=== PATIENT | female | born 1930 | race Caucasian/White ===

== ENCOUNTER 2018-03-24 15:37 | Inpatient (IN) ==
--- NOTE | 2018-03-24 16:45 | PROVIDER DOCUMENTATION ---
HPI-General Adult - General Stated Complaint: chronic pain Time Seen by Provider: 03/24/18 16:06 Source: patient Allergies/Adverse Reactions: Patient Allergies Allergy/AdvReac Type Severity Reaction Status Date / Time Penicillins Allergy Intermediate RASH Verified 03/24/18 17:06 Iodinated Contrast- Oral and AdvReac Unknown Unknown Verified 03/24/18 17:06 IV Dye Home Medications: Home Medication List Medication Instructions Recorded Confirmed Last Taken Type Aspirin 325 mg PO DAILY 04/08/14 03/24/18 03/24/18 History Ca Citrate/Mgox/Vit D3/B6/Min 1 tab PO DAILY 04/08/14 03/24/18 03/24/18 History [Citracal Plus Tablet] Multivitamins/Minerals [Centrum 1 tab PO DAILY 04/08/14 03/24/18 03/24/18 History Silver] Pramipexole Di-HCl [Pramipexole 0.25 mg PO QHS 04/08/14 03/24/18 03/23/18 History Dihydrochloride] Pravastatin Sodium 40 mg PO QHS 04/08/14 03/24/18 03/23/18 History Tramadol HCl/Acetaminophen 1 tab PO QHS PRN 04/08/14 03/24/18 03/24/18 History [Tramadol-Acetaminophn 37.5-325] Venlafaxine HCl [Venlafaxine HCl 25 mg PO DAILY 04/08/14 03/24/18 03/24/18 History ER] Metoprolol Succinate E.r. [Toprol 100 mg PO DAILY 04/19/14 03/24/18 03/24/18 History Xl] Furosemide [Lasix] 80 mg PO DAILY 04/20/14 03/24/18 03/24/18 History Potassium Chloride 10 meq PO DAILY 04/20/14 03/24/18 03/24/18 History Latanoprost [Xalatan] 2.5 ml OP QHS 02/08/15 03/24/18 03/23/18 History Allopurinol 100 mg PO DAILY 03/24/18 03/24/18 03/24/18 History Cyanocobalamin (Vitamin B-12) 5,000 mcg PO DAILY 03/24/18 03/24/18 03/24/18 History [Vitamin B-12] Cyclosporine 0.05% Oph Drops 1 each BOTH EYES BID 03/24/18 03/24/18 03/24/18 History [Restasis 0.05% Oph Drops] Docusate Sodium 100 mg PO BID 03/24/18 03/24/18 03/24/18 History Gabapentin 300 mg PO BID 03/24/18 03/24/18 03/24/18 History Insulin Detemir [Levemir] 45 unit SQ BID 03/24/18 03/24/18 03/24/18 History Loratadine 10 mg PO DAILY 03/24/18 03/24/18 03/24/18 History Polyethylene Glycol 3350 [Clearlax] 17 gm PO DAILY 03/24/18 03/24/18 03/24/18 History - History of Present Illness -Gen Adult Nature of Presenting Problems: Patient brought by granddaughter. she visited her today@10 AM and she was still sleeping "not her usual, she usually up and get breakfast and active". she still able to walk using the walker. Patient report headache for the last few days. BP was elevated in the NH. denies other complaints. Review of Systems - Adult - REVIEW OF SYSTEMS - ADULT Constitutional: reports: no symptoms reported Eyes: reports: no symptoms reported Ears, Nose, Mouth & Throat: reports: no symptoms reported Cardiovascular: reports: no symptoms reported Respiratory: reports: no symptoms reported Gastrointestinal: reports: no symptoms reported, other (suprapubic pressure) Musculoskeletal: reports: back pain Integumentary: reports: no symptoms reported Neurological: reports: no symptoms reported Psychiatric: reports: no symptoms reported Allergic/Immunologic: reports: no symptoms reported Past History - Adult - PAST MEDICAL HISTORY-ADULT Review of Records: reports: Old Records Reviewed, Nursing Assessment Review, Medications Reviewed, Social history reviewed & non-contributory. Cardiovascular: reports: CHF, HTN, hyperlipidemia Gastrointestinal: reports: GERD Musculoskeletal: reports: osteoporosis Psychiatric: reports: depression Endocrine/Immune: reports: Diabetes - PRIOR SURGERIES/PROCEDURES Surgical/Procedure History: reports: hysterectomy, joint replacement (Total knee replacement), back/neck (back Sx), other (hemorrhoidectomy). denies: breast (breast biopsy) - IMMUNIZATION STATUS Flu Vaccine: UTD Physical Exam-General - PHYSICAL EXAM-ADULT Initial Vital Signs Reviewed: Yes - CONSTITUTIONAL General Appearance: appears well, no apparent distress - EYES Eyes: PERRL/EOMI - HEAD, EARS, NOSE, MOUTH & THROAT HENMT: normocephalic/atraumatic, moist mucous membranes, normal ENT inspection - NECK Neck: non-tender, full range of motion, supple - RESPIRATORY Respiratory: lungs clear, normal breath sounds, no pleuratic chest pain - CARDIOVASCULAR Cardiovascular: normal peripheral pulses, regular rate, rhythm - GASTROINTESTINAL (ABDOMEN) Abdominal Exam: normal bowel sounds, non tender, soft - MUSCULOSKELETAL Back Exam: no CVA tenderness, no vertebral tenderness - NEUROLOGIC Neurologic: grossly normal, other (alert and Ox3) - PSYCHIATRIC Psych/Mental Status: normal mood/affect, normal thought content, normal thought process, oriented x 3 Progress - PLAN OF CARE/RESULTS Progress/Plan/Lab Results: Orders Category Date Time Status Cardiac Monitoring DIRECTED Care 03/24/18 16:22 Active CBC WITH ELECTRONIC DIFF [HEME] Stat Lab 03/24/18 16:20 Uncollected CMP [COMPREHENSIVE METABOLIC PANEL] [CHEM] Stat Lab 03/24/18 16:20 Uncollected TROPONIN T Stat Lab 03/24/18 16:20 Ordered URINALYSIS W/POSS RFLX CULT [URINALYSIS] Stat Lab 03/24/18 16:21 Uncollected EKG [EKG] Stat Ther 03/24/18 16:22 Ordered Result Diagrams: 03/24/18 16:50 03/24/18 16:50 - REASSESSMENT Reassessment #1 Time Reassessed: 19:12 Status: improving (Patient feels alot better. still has some headache.) Reassessment #2 Time Reassessed: 20:13 Status: worsening (Nurse report patient become confused and less responsive. seen by myself and Dr. Elias. will do CT head. Dr. Scott here in the ER, plan is to admit.) Reassessment #3 Time Reassessed: 21:02 Status: worsening (Discuss case with Dr. Scott. plan is to admit. patient is sleepy and respond just to painful stimuli. GCS 8. patient likely on Ativan effect. will Monitor) Reassessment #4 Time Reassessed: 21:56 Status: improving (Patient is more responsive, requesting pain medication.) - EKG 1 Time of EKG reading by physician:: 16:50 EKG Read and Signed by:: Tomás Yuen EKG Interpretation (*Must complete 3 of following elements*): Abnormal Rate: 64 Rhythm: NSR [place]: normal QRS: normal NC Interval: normal ST Wave: normal Prior EKG Comparison: changes noted Comments: PVC Noted - CONSULTS/PCP/HOSPITALIST Notification #1 *Consult/PCP/Hospitalist*: Dr. scott Consult Disposition: other (Discharge to [facility].) Departure - Departure Date of Disposition Decision: 03/24/18 Time of Disposition Decision: 19:06 DIAGNOSIS: Elevated blood pressure reading Hematuria Qualifiers: Hematuria type: unspecified type Qualified Code(s): R31.9 - Hematuria, unspecified Headache Qualifiers: Headache type: unspecified Headache chronicity pattern: acute headache Intractability: not intractable Qualified Code(s): R51 - Headache Back pain Qualifiers: Back pain location: low back pain Chronicity: chronic Back pain laterality: midline Sciatica presence: without sciatica Qualified Code(s): M54.5 - Low back pain Altered mental status Qualifiers: Altered mental status type: unspecified Qualified Code(s): R41.82 - Altered mental status, unspecified Disposition: ADMITTED INPATIENT 09 Certified Medical Emergency: Emergent Condition: Serious - Critical Care Note This patient required my direct & personal management of CC.: No Attestation - Physician/ MARY Attestation Patient care was provided by Advanced Practice Provider:: No The physician spent face to face time with patient:: Yes Advanced Practice Provider documentation review:: Supervising physician onsite and consulted in the evaluation and care of this patient. The physician did have a face to face encounter with the patient.
[2018-03-24 17:14] LABS: BASO# 0.04 X1000 (0.0-0.2); BASO% 0.4 % (0.0-0.8); EOS# 0.27 X1000 (0.0-0.7); EOS% 2.8 % (0.0-10.0); HEMATOCRIT 45.4 % (37.0-47.0); HEMOGLOBIN 14.3 g/dL (12.0-16.0); IMM GRAN# 0.02 X1000 (0.0-0.04); IMM GRAN% 0.2 % (0.0-0.5); LYMPH# 4.49 X1000 (1.2-3.4); MCH 30.8 PG (27-31); MCHC 31.5 g/dL (33-37); MCV 97.8 FL (81-99); MONO# 0.57 X1000 (0.11-0.59); MPV 10.5 FL (7.4-10.4); NEUT# 4.17 X1000 (1.4-6.5); NEUT% 43.6 % (42.2-75.2); PLT 192 X1000 (130-400); RBC 4.64 XMIL (4.2-5.4); RDW 13.5 % (11.5-14.5); WBC 9.56 X1000 (4.8-10.8)
[2018-03-24 17:20] LABS: URINE SOURCE CLEAN CATCH
[2018-03-24 17:30] LABS: BILIRUBIN URINE NEGATIVE (NEGATIVE); BLOOD URINE NEGATIVE (NEGATIVE); COLOR STRAW; GLUCOSE URINE NEGATIVE (NEGATIVE); KETONE URINE NEGATIVE (NEGATIVE); LEUKOCYTES URINE NEGATIVE (NEGATIVE); NITRITE URINE NEGATIVE (NEGATIVE); PROTEIN URINE NEGATIVE (NEGATIVE); TURBIDITY URINE CLEAR (CLEAR); UROBILINOGEN URINE NORMAL (NORMAL)
[2018-03-24 17:32] LABS: ALB/GLOB RATIO 1.2; ALBUMIN 4.2 g/dL (3.5-5.0); CALCIUM 9.4 mg/dL (8.8-10.2); CREATININE 0.9 mg/dL (0.5-0.9); POTASSIUM 4.2 mmol/L (3.5-5.1); TOTAL BILIRUBIN 0.18 mg/dL (0.20-1.00); TOTAL PROTEIN 7.6 g/dL (6.3-8.3)
[2018-03-24 17:32] LABS: UR EPITHELIAL CELLS <10 /HPF (<10); URINE BACTERIA NEGATIVE /HPF; URINE WBC <10 /HPF (<10)
[2018-03-24] MEDS ORDERED: LABETALOL IV ONE ×2 (17:59)
--- NOTE | 2018-03-24 18:34 | Diag Imaging Result Doc PS360 ---
EXAM: CT ABDOMEN/PELVIS W/O CONTRAST 03/24/2018 HISTORY: blood in urine, lower abdominal pain TECHNIQUE: This exam was performed using automated exposure control, adjustment of mA or kV according to patient size, and/or use of iterative reconstruction technique. COMMENT: There are linear opacities in both medial lower lobes as well as the lingula which may be due to atelectasis. None of these abnormalities were present on 12/06/2011. There is a cyst in the left hepatic lobe which has not changed since the previous study. The gallbladder is distended as it was on the previous exam. There is no evidence of nephrolithiasis or hydronephrosis. There is what appears to be a hyperdense cyst in the upper pole of the left kidney. Multiple other cysts are present. There is some stranding in the perinephric spaces bilaterally which was also the case at the time of the previous study. The urinary bladder is not distended. There is no evidence of ureterolithiasis. There is scattered colonic diverticulosis without evidence of acute diverticulitis. There is no evidence of bowel obstruction. There is no evidence of appendicitis. No free fluid is present. There are degenerative disc changes in the lumbar spine IMPRESSION: Bibasilar atelectasis. No evidence of urolithiasis or hydronephrosis. Otherwise no evidence of acute disease. Electronically signed by Trent Ballard 03/24/2018 6:31 PM
[2018-03-24] MEDS ORDERED: APRESOLINE IV ONE (18:38)
[2018-03-24] MEDS ORDERED: ATIVAN ONE (20:05)
--- NOTE | 2018-03-24 20:26 | Diag Imaging Result Doc PS360 ---
EXAM: CT HEAD W/O CONTRAST 03/24/2018 HISTORY: AMS TECHNIQUE: This exam was performed using automated exposure control, adjustment of mA or kV according to patient size, and/or use of iterative reconstruction technique. COMMENT: There is moderate cerebral atrophy. There is no evidence of bleed or mass effect. There are multiple small lacunae present in the basal ganglia region bilaterally. There is a small lacune in the posterior external capsule on the right. There are mucus retention cysts in both maxillary sinuses. The calvarium is intact. There is a subperiosteal lipoma over the left frontal bone which has not changed since 02/08/2015. Otherwise the appearance the brain has not changed appreciably. IMPRESSION: Chronic microvascular ischemic changes and atrophy. No evidence of acute intracranial disease. Electronically signed by Trent Ballard 03/24/2018 8:23 PM
[2018-03-24] MEDS ORDERED: ATIVAN IV ONE (20:29)
[2018-03-24] MEDS ORDERED: ULTRACET 37.5MG/325MG PO PRN (21:47)
[2018-03-24] MEDS ORDERED: TORADOL IV ONE (22:44)
--- NOTE | 2018-03-24 23:17 | HISTORY AND PHYSICAL ---
CHIEF COMPLAINT: 1. Lower abdominal pain. 2. Altered mental status, possible seizure, passed out x2. 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 Initial complaint was abdominal pain and further workup was negative. Patient was supposed to go back to the [facility]. In the meantime she is getting some type of condition of the head and then passing out. The patient apparently went to the bathroom, in the meantime the granddaughter was at bedside and she was unresponse and blinking eyes and no seizure activity. The patient is hemodynamically stable. Blood sugars are normal. CT head was negative. Basically admitted to the hospital with recurrent dizzy spells and near syncope. Etiology is not clear. As a result, a hospital admission was warranted. CT head was negative and the patient was not seen in my office for the last 3 years. PAST MEDICAL HISTORY: Type 2 diabetes, metabolic syndrome, T11-T12 compression fracture, acid reflux disease, glaucoma, hypertension, hyperlipidemia, osteoarthritis, sleep apnea, vitamin B12 deficiency, history of lacunar strokes. PAST SURGICAL HISTORY: Benign breast biopsy, hemorrhoidectomy, hysterectomy, back surgery. MEDICATIONS: Reported Citracal 1 tablet daily, Centrum Silver 1 tablet daily, aspirin 81 mg daily, Effexor 25 daily, Ultracet 1 tab at bedtime, pravastatin 40 daily, pramipexole 0.25 daily, metoprolol 100 daily, potassium 10 mEq daily, Lasix 80 daily, Xalatan 2.5 one drop both eyes at bedtime, B12 5000 mcg daily, Restasis daily, docusate 100 p.o. b.i.d., Levemir 45 subcu b.i.d., loratadine 10 daily, MiraLAX 17 g daily, allopurinol 100 daily, gabapentin 300 b.i.d. ALLERGIES: Penicillin, contrast iodine, IVP dye. 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 FAMILY HISTORY: Father of Alzheimer disease, mom of mini strokes. REVIEW OF SYSTEMS: Some headache and dizzy spells, passing out, bilateral earaches and no goiter, no lymphadenopathy.Cardiopulmonary: No chest pain, shortness of breath, PND, orthopnea. No lumps in the breast. GI: Lower abdominal pain and discomfort possible UTI, no swelling of feet. Chronic pain in knees and the legs, no claudication symptoms. Chronic back pain. No neurological symptoms or weakness or seizures. EXAM: Temperature is 98 degrees, pulse is 60, blood pressure is stable, 95% on room air.HEENT: Atraumatic, normocephalic. Minimal wax noted in the right ear, tympanic membranes normal on the left side. Pupils equal, react to light. Tongue is midline. Neck: Supple. No lymphadenopathy. No goiter. Chest: Bilateral air entry. Heart: Sounds are regular and no murmur. Breast: Deferred. Belly: Is soft, obese, nontender. Good bowel sounds. No peripheral edema, cyanosis. No obvious neurological deficits noted. INVESTIGATIONS: CBC is normal. SMA 7 is normal. Glucose 135. LFTs, cardiac enzymes were normal. Urinalysis clear. CT scan abdomen and pelvis and bilateral bibasilar atelectasis. No evidence of hydronephrosis, no evidence of acute disease and the cyst in the left hepatic lobe. Gallbladder distended, urinary bladder is not distended. No evidence of diverticulitis, no evidence of bowel obstruction. Chronic DJD changes in the lumbar spine. CT head is negative. ASSESSMENT AND PLAN: 1. 87-year-old white female basically admitted to the hospital with recurrent dizzy spells, rule out orthostatic hypotension. Etiology not clear. Will admit to the hospital. Neuro checks. Physical therapy consult. 2. Abdominal pain. Findings were reassuring. 3. Deep venous thrombosis prophylaxis with Lovenox. 4. Reconcile home medicines. 5. Type 2 diabetes. Insulin sliding scale with coverage and will follow up. cc: Hira Zelaya MD
--- NOTE | 2018-03-25 08:20 | EKG Report ---
Test Performed on : 03/24/2018 4:48:04 PM Test Reason : TiffanieMarlon LUIS FERNANDO Blood Pressure : / mmHG Vent. Rate : 064 BPM Atrial Rate : 064 BPM P-R Int : 196 ms QRS Dur : 088 ms QT Int : 436 ms P-R-T Axes : 092 -27 020 degrees QTc Int : 449 ms Sinus rhythm. with frequent premature ventricular complexes. Nonspecific T wave abnormality Abnormal ECG When compared with ECG of 19-APR-2014 19:54, premature ventricular complexes. are now present Vent. rate has decreased BY 37 BPM Nonspecific T wave abnormality now evident in Anterior leads Unconfirmed Result
[2018-03-25] MEDS ORDERED: TYLENOL PO PRN (08:54)
[2018-03-25] MEDS ORDERED: LOVENOX SUBQ SCH (09:00)
[2018-03-25] MEDS ORDERED: EFFEXOR XR PO SCH (09:00)
[2018-03-25 09:40] LABS: BASO# 0.05 X1000 (0.0-0.2); BASO% 0.5 % (0.0-0.8); EOS# 0.24 X1000 (0.0-0.7); EOS% 2.2 % (0.0-10.0); HEMATOCRIT 46.3 % (37.0-47.0); HEMOGLOBIN 14.5 g/dL (12.0-16.0); IMM GRAN# 0.02 X1000 (0.0-0.04); IMM GRAN% 0.2 % (0.0-0.5); LYMPH# 4.71 X1000 (1.2-3.4); LYMPH% 43.7 % (20.5-51.1); MCHC 31.3 g/dL (33-37); MCV 98.9 FL (81-99); MONO# 0.83 X1000 (0.11-0.59); MONO% 7.7 % (1.7-9.3); MPV 11.3 FL (7.4-10.4); NEUT# 4.92 X1000 (1.4-6.5); NEUT% 45.7 % (42.2-75.2); PLT 220 X1000 (130-400); RBC 4.68 XMIL (4.2-5.4); RDW 13.8 % (11.5-14.5); WBC 10.77 X1000 (4.8-10.8)
[2018-03-25 10:42] LABS: SED RATE 23 mm/hr (0-20)
--- NOTE | 2018-03-25 10:48 | EKG Report ---
Test Performed on : 03/25/2018 10:43:13 AM Test Reason : cp Blood Pressure : / mmHG Vent. Rate : 066 BPM Atrial Rate : 066 BPM P-R Int : 180 ms QRS Dur : 098 ms QT Int : 440 ms P-R-T Axes : 034 -17 054 degrees QTc Int : 461 ms Sinus rhythm. with frequent premature ventricular complexes. Otherwise normal ECG When compared with ECG of 24-MAR-2018 16:48, (Unconfirmed) No significant change was found Confirmed by Brent CHURCHILL, Mitchell Pastor ([id number]) on 03/26/2018 7:10:21 AM
[2018-03-25] MEDS: MIRALAX PO SCH (11:21)
[2018-03-25] MEDS: EFFEXOR PO SCH (11:22)
[2018-03-25] MEDS: ULTRACET 37.5MG/325MG PO SCH ×2 (11:22→23:01)
[2018-03-25] MEDS: TOPROL XL PO SCH (11:22)
[2018-03-25] MEDS: [UNRECOGNIZED DRUG - OTHER] PO SCH ×2 (11:23→23:08)
[2018-03-25] MEDS: CLARITIN PO SCH (11:24)
[2018-03-25] MEDS: ASPIRIN PO SCH (11:24)
[2018-03-25] MEDS: COLACE PO SCH ×2 (11:24→23:01)
[2018-03-25] MEDS: LASIX PO SCH (11:25)
[2018-03-25] MEDS: RESTASIS 0.05% OPH DROPS BOTH EYES SCH ×2 (11:25→23:07)
[2018-03-25] MEDS: NEURONTIN PO SCH ×2 (11:25→23:01)
[2018-03-25] MEDS: KLOR-CON PO SCH (11:26)
[2018-03-25] MEDS: ZYLOPRIM PO SCH (11:26)
[2018-03-25] MEDS: LOVENOX SUBQ SCH (11:27)
[2018-03-25] MEDS: VITAMIN B-12 PO SCH (11:27)
[2018-03-25] MEDS: PATIENT'S OWN MED PO SCH (11:27)
--- NOTE | 2018-03-25 13:43 | EEG REPORT ---
DATE: 03/25/2018 EEG #: [id number] DATE OF EE03/25/2018. COMMENT: This is a digitally-recorded EEG on an 87-year-old patient with reported altered awareness, question of seizure. FINDINGS: During waking, medium amplitude 7-8 Hz posterior rhythm is present bilaterally with uncertain reactivity to eye opening. Background contains polymorphic and rhythmic theta frequencies across the frontal and central regions symmetrically. There is occasional prominent higher amplitude rhythmic slowing into the delta range frontally. Drowsing occurred briefly. Stage 2 sleep was recorded briefly. Photic stimulation did not alter the record. Hyperventilation was not done. No definite epileptiform discharge was identified. INTERPRETATION: Abnormal electroencephalogram because of generalized slowing and intermittent frontal rhythmic delta. CORRELATION: This is indicative of a diffuse encephalopathy and is nonspecific. Intermittent rhythmic frontal delta is often associated with toxic/metabolic state, but may occur without specific encephalopathy. The absence of epileptiform discharges on a single electroencephalogram does not exclude a clinical diagnosis of seizures. cc: MD Hira Hinojosa III, MD [facility]
[2018-03-25] MEDS ORDERED: BLISTEX MEDICATED BERRY LIP BALM TOP ONE (14:36)
--- NOTE | 2018-03-25 16:36 | Diag Imaging Result Doc PS360 ---
MRI BRAIN W/WO CONTRAST - 03/25/2018 INDICATION: headaches COMPARISON: Head CT 03/24/2018 FINDINGS: There is mild to moderate patient motion artifact. There is diffuse cerebral atrophy. There is periventricular white matter hyperintensity compatible with chronic microvascular disease. No intracranial mass or hemorrhage. There is no abnormal contrast enhancement. There is a benign lipoma of the left frontal bone. There is no restricted diffusion. IMPRESSION: Atrophy and chronic microvascular disease. No acute process. Electronically signed by Mathieu Restrepo 03/25/2018 4:34 PM
[2018-03-25] MEDS: MIRAPEX PO SCH (23:01)
[2018-03-25] MEDS: PRAVACHOL PO SCH (23:07)
[2018-03-25] MEDS: XALATAN 0.005% OPH SOLN BOTH EYES SCH (23:07)
--- NOTE | 2018-03-26 00:47 | PROGRESS NOTE ---
DATE: 03/25/2018 SUBJECTIVE: The patient is still in the emergency room. Daughter was at bedside. Still not able to explain her near-syncope spells. I do not think it looks like seizure activity. The patient complains of headache, congestion. EXAMINATION: Vital Signs: Temperature is 97 degrees, pulse is 57, blood pressure is stable. HEENT: TMs are normal. Nose and throat: Within normal limits. Neck: Supple. Chest: Clear. Heart: Sounds are regular. Abdomen: Belly is soft, nontender. Neurologic: No obvious deficits noted. LABS: CBC is normal. Sedimentation rate is 23. A1c 7.0. CRP normal. Vitamin B12 is normal. ASSESSMENT AND PLAN: 1. Near-syncope spells. Etiology is not clear. Rule out cardiac arrhythmias. 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 2. Headache, altered mental status. Rule out polymyalgia rheumatica or temporal arteritis. Will get the sedimentation rate, which is normal. Schedule for MRI of the brain and carotid Dopplers. 3. Questionable seizures. Also, go ahead and EEG. 4. Physical Therapy consult. Check the orthostatic blood pressure. 5. Deep venous thrombosis prophylaxis with Lovenox. 6. Diabetes is stable on present dose of insulin. 7. So far, all the workup was negative. Follow up on the pending labs. LEVEL OF DOCUMENTATION: 25 minutes. cc: Hira Zelaya MD
[2018-03-26] MEDS: MIRALAX PO SCH (09:13)
[2018-03-26] MEDS: ASPIRIN PO SCH (09:13)
[2018-03-26] MEDS: ULTRACET 37.5MG/325MG PO SCH ×2 (09:13→20:27)
[2018-03-26] MEDS: COLACE PO SCH ×2 (09:13→20:26)
[2018-03-26] MEDS: VITAMIN B-12 PO SCH (09:14)
[2018-03-26] MEDS: KLOR-CON PO SCH (09:14)
[2018-03-26] MEDS: NEURONTIN PO SCH ×2 (09:14→20:26)
[2018-03-26] MEDS: TOPROL XL PO SCH (09:14)
[2018-03-26] MEDS: CLARITIN PO SCH (09:14)
[2018-03-26] MEDS: ZYLOPRIM PO SCH (09:14)
[2018-03-26] MEDS: LOVENOX SUBQ SCH (09:14)
[2018-03-26] MEDS: LASIX PO SCH (09:14)
[2018-03-26] MEDS: RESTASIS 0.05% OPH DROPS BOTH EYES SCH ×2 (09:21→20:39)
[2018-03-26] MEDS: EFFEXOR PO SCH (10:53)
[2018-03-26] MEDS: [UNRECOGNIZED DRUG - OTHER] PO SCH ×2 (10:53→20:39)
[2018-03-26] MEDS: PATIENT'S OWN MED PO SCH (10:54)
--- NOTE | 2018-03-26 12:31 | Carotid Study ---
DATE: 03/24/2018 EQUIPMENT: NorSunid E9 ultrasound system with a 9LD transducer. PROCEDURE: Carotid duplex imaging. REFERRING PHYSICIAN: Dr. Zelaya INTERPRETING PHYSICIAN: Kesha Valverde MD TECH: Tiffani De Jesus [facility] INDICATIONS: An 87-year-old female wt syncope. OBSERVED DATA RIGHT LEFT Brachial Blood Pressure Carotid Pulse Bruits: Carotid/Sub DIAGRAM OF ULTRASOUND IMAGING R L RIGHT INT EXT INT EXT LEFT Aiden (cm/s) Aiden (cm/s) Subclavian 62/0 Subclavian 88/2 CCA Proximal 60/11 CCA Proximal 56/7 CCA Distal 45/8 CCA Distal 58/10 Bulb 40/7 Bulb 42/11 ICA Proximal 38/12 ICA Proximal 50/11 ICA Mid 42/13 ICA Mid 49/13 ICA Distal 37/14 ICA Distal 44/12 ECA 66/6 ECA 50/7 Vertebral 43/11 Forward flow Vertebral 49/10 Forward flow ICA/CCA Ratio 0.70 ICA/CCA Ratio 0.86 % Stenosis 0%-39% % Stenosis 0%-39% INTERPRETATION: Minimal atherosclerotic disease of the distal common and internal carotid arteries bilaterally without evidence of a hemodynamically significant lesion in either carotid system. cc: MD Hira Canchola MD
[2018-03-26] MEDS: MIRAPEX PO SCH (20:27)
[2018-03-26] MEDS: PRAVACHOL PO SCH (20:27)
[2018-03-26] MEDS: XALATAN 0.005% OPH SOLN BOTH EYES SCH (20:40)
--- NOTE | 2018-03-27 03:52 | DISCHARGE SUMMARY ---
ADMISSION DATE: 03/25/2018 DISCHARGE DATE: 03/27/2018 DISCHARGING DIAGNOSIS: Altered mental status, near syncope due to metabolic encephalopathy. Etiology is undetermined. SECONDARY DIAGNOSES: 1. Type 2 diabetes. 2. Metabolic syndrome. 3. T11-T12 compression fracture. 4. Acid reflux disease. 5. Glaucoma. 6. Hypertension. 7. Hyperlipidemia. 8. Osteoarthritis. 9. Sleep apnea. 10. Vitamin B12 deficiency. 11. History of lacunar stroke. PROCEDURES: 1. CT scan is negative. 2. MRI of the brain: Atrophy. Chronic microvascular ischemic changes. 3. EEG: Diffuse encephalopathy, nonspecific. 4. Carotid Dopplers: No hemodynamics stenosis in either internal carotid system. 5. CT scan of the abdomen and pelvis: No evidence of acute disease. BRIEF HISTORY: Please see the H and P that was done on 03/24/2018. In brief, she is an 87-year- old white female, who was not seen in my office for a while. Has been living in [facility]. Basically, came to the hospital with lower abdominal pain, headache. Also, has passing out spells. The family brought today by ambulance. Initial workup for abdominal pain is negative. All the blood workup is negative. Patient was ready to go back to the rehab. Apparently, the daughter was at bedside. Trying to go to the bathroom. On the way back, the patient had some jerking spells, passing out, unable to follow verbal commands. The ER physicians did a CT scan, which is negative. Blood sugars were normal. 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 Basically, admitted to the hospital for near-syncope. HOSPITAL COURSE: Orthostatic blood pressure is stable. Blood sugars are normal. All the workup was negative. During fish roe technician, I did not find any evidence of cardiac arrhythmias. Family has been reassured. LABS: CBC is normal. SMA-7 is normal. A1c 7.0. Cardiac enzymes were normal. B12 is normal. Urinalysis is clear. Findings were reassuring. Will go back to rehab in a stable condition. MEDICATIONS LIST: Citracal 1 tablet daily, Centrum Silver 1 tablet daily, aspirin 81 mg daily, Effexor 25 daily, Ultracet 1 tablet b.i.d., pravastatin 40 daily, Mirapex 0.25 at bedtime, metoprolol 100 daily, potassium 10 mEq daily, Lasix 80 daily, Xalatan 2.5 p.o. at bedtime, B12 5000 mcg daily, cyclosporine 1 drop both eyes b.i.d., Colace 100 p.o. b.i.d., Levemir 45 subcu b.i.d., loratadine 10 daily, MiraLAX 17 g daily, allopurinol 100 daily, gabapentin 300 p.o. b.i.d. Continue to monitor as an outpatient. cc: Hira Zelaya MD
--- NOTE | 2018-03-27 03:52 | PROGRESS NOTE ---
DATE: 03/26/2018 SUBJECTIVE: The patient is getting better. Daughter is at bedside. 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 Occasional PVCs and sinus rhythm. EXAMINATION: Vital Signs: Temperature is 97 degrees, pulse is 57, blood pressure is 140/67. HEENT: Within normal limits. Neck: Supple. No lymphadenopathy. Chest: Clear. Heart: Sounds are regular. Rest of the exam is benign. INVESTIGATIONS: MRI of the brain is negative. Carotid Dopplers were negative. A1c 7.0. ASSESSMENT AND PLAN: 1. Near-syncope spells. Etiology was not clear. All the workup was negative. 2. Out of the bed with physical therapy. 3. Diabetes is stable. At this time, I do not have an explanation. Findings were reassured. We will discharge back to the [facility] tomorrow morning. LEVEL OF DOCUMENTATION: 25 minutes. cc: Hira Zelaya MD
[2018-03-27] MEDS: MIRALAX PO SCH (09:05)
[2018-03-27] MEDS: RESTASIS 0.05% OPH DROPS BOTH EYES SCH (09:06)
[2018-03-27] MEDS: ULTRACET 37.5MG/325MG PO SCH (09:07)
[2018-03-27] MEDS: EFFEXOR PO SCH (09:07)
[2018-03-27] MEDS: LASIX PO SCH (09:08)
[2018-03-27] MEDS: ASPIRIN PO SCH (09:08)
[2018-03-27] MEDS: ZYLOPRIM PO SCH (09:08)
[2018-03-27] MEDS: NEURONTIN PO SCH (09:08)
[2018-03-27] MEDS: LOVENOX SUBQ SCH (09:09)
[2018-03-27] MEDS: KLOR-CON PO SCH (09:09)
[2018-03-27] MEDS: TOPROL XL PO SCH (09:09)
[2018-03-27] MEDS: CLARITIN PO SCH (09:09)
[2018-03-27] MEDS: VITAMIN B-12 PO SCH (09:09)
[2018-03-27] MEDS: COLACE PO SCH (09:10)
[2018-03-27] MEDS: PATIENT'S OWN MED PO SCH (09:10)
[2018-03-27] MEDS: [UNRECOGNIZED DRUG - OTHER] PO SCH (09:10)
--- NOTE | 2018-03-27 11:06 | Diag Imaging Result Doc PS360 ---
EXAM: CHEST-PORTABLE HISTORY: rehab placement TECHNIQUE: Portable chest single view COMPARISON: 02/09/2015 FINDINGS: The lungs are well expanded. The heart is not enlarged. Mild central vascular prominence. There are no infiltrates. No effusion identified. Old injury to the right shoulder with long-standing arthritis IMPRESSION: Mild central vascular prominence, otherwise negative exam. Electronically signed by Jake Snowden 03/27/2018 11:04 AM
[2018-03-27 11:42] VITALS: BP 143/58
== END 2018-03-27 12:05 | DRG 312 ==
LOC: ED 15:37 → EDIPHOLD 03-25 00:42 → 3N 03-25 16:22
PROVIDERS: ADMIT Internal Medicine; ATTEND Internal Medicine
CPT/HCPCS: 70450; 70553; 71010; 71045; 74176; 80053; 81001; 82607; 82948; 83036; 84484; 85025; 85651; 86140; 93005; 93880; 95816; 96372; 96374; 96375; 97116; 97162; 97530; 99285; A9270; A9579; J0360; J1650; J1885; J2060; XXXXX